=== PATIENT | female | born 1955 | race Caucasian/White ===

== ENCOUNTER 2024-07-24 08:14 | Outpatient (CLI) | payer MEDICARE, SELFPAY | END 2024-07-24 08:15 | disposition home or self-care (01) | PROVIDERS: PCP Family Medicine; Visit Provider Family Medicine | DX: I10 Essential (primary) hypertension (principal); Z13.6 Encounter for screening for cardiovascular disorders | CPT/HCPCS: 80048; 80061; 85025 ==

== ENCOUNTER 2025-01-22 06:43 | Outpatient (CLI) | payer MEDICARE, SELFPAY | END 2025-01-22 06:44 | disposition home or self-care (01) | PROVIDERS: PCP Family Medicine; Visit Provider Family Medicine | DX: I10 Essential (primary) hypertension (principal) | CPT/HCPCS: 80048 ==